=== PATIENT | female | born 2000 | race African-American/Black ===

== ENCOUNTER 2019-06-12 13:35 | Emergency (ER) | payer OTHER ==
[~2019-06-12] VITALS: Ht 172.7 cm; Wt 101.6 kg
--- NOTE | 2019-06-12 13:39 | NUR ---
Pt taken to bed 4.
[2019-06-12 13:44] VITALS: BP 123/82
--- NOTE | 2019-06-12 13:44 | NUR ---
BIB MOTHER C/O PIERCING INFETION ON THE LEFT ALA OF THE NOSE. PT REPORTS HAVING TENDERNESS, YELLOWISH DRAINAGE ON THE LEFT ALA. SLIGHT EDEMA W/O ERYTHEMA NOTICED ON THE PIERCING AREA. PATIENT STATES PAIN OF 6/10 AT THIS TIME; VSS; PATIENT POSITIONED FOR COMFORT; HOB ELEVATED; BEDRAILS UP X1; BED DOWN. ER MD MADE AWARE OF PT STATUS.
--- NOTE | 2019-06-12 13:45 | NUR ---
DR. TREVINO IS EVALUATING PT AT BEDSIDE.
[2019-06-12 13:55] VITALS: BP 120/81
--- NOTE | 2019-06-12 13:55 | NUR ---
Patient discharged with v/s stable. Written and verbal after care instructions given and explained pt and mother. Patient alert, oriented and mother verbalized understanding of instructions. Ambulatory with steady gait. All questions addressed prior to discharge. ID band removed. Patient advised to follow up with PMD. Rx of Naproxen and Bactrim given. Patient educated on indication of medication including possible reaction and side effects. Opportunity to ask questions provided and answered.
== END 2019-06-12 13:55 | disposition home or self-care (01) ==
LOC: MED 13:35
DX: L08.9 Local infection of the skin and subcutaneous tissue, unspecified (principal)
CPT/HCPCS: 99283

== ENCOUNTER 2019-09-22 18:59 | Emergency (ER) | payer MEDICAID ==
[~2019-09-22] VITALS: Ht 172.7 cm; Wt 95.3 kg
[2019-09-22 19:44] VITALS: BP 122/77
--- NOTE | 2019-09-22 20:36 | NUR ---
PT TO ER CHAIR B
--- NOTE | 2019-09-22 20:36 | NUR ---
PATIENT ASSESSMENT COMPLETED AT THIS TIME. PATIENT SITTING UP IN CHAIR. AAO. NO NEEDS ADDRESSED AT TIME OF ASSESSMENT.
[2019-09-22 21:15] VITALS: BP 122/77
--- NOTE | 2019-09-22 21:16 | NUR ---
Patient discharged with v/s stable. Written and verbal after care instructions given and explained. Patient alert, oriented and verbalized understanding of instructions. Ambulatory with steady gait. All questions addressed prior to discharge. ID band removed. Patient advised to follow up with PMD. Rx of AGNIESZKA STOVERTIN given. Patient educated on indication of medication including possible reaction and side effects. Opportunity to ask questions provided and answered.
== END 2019-09-22 21:15 | disposition home or self-care (01) ==
LOC: MED 18:59
DX: J30.9 Allergic rhinitis, unspecified (principal)
CPT/HCPCS: 99283